=== PATIENT | male | born 1965 | race Caucasian/White ===

== ENCOUNTER 2017-02-10 17:40 | Observation (INO) | payer MEDICAID, OTHER, SELFPAY ==
[~2017-02-10] VITALS: Ht 177.8 cm; Wt 83.0 kg
[2017-02-10] MEDS: INSULIN REGULAR 100 UNITS/ML, 3ML VIAL SQ-INSULIN SCH (01:30)
[~2017-02-10 17:40] MED LIST: AMLO2.5T PO; ARIP20TA8 PO; FLUO20CA19 PO; GABA300C PO; HYDR-3343 PO; INSU100I28 SQ-INSULIN; INSU100V5 SQ-INSULIN; PARO20TA55 PO; QUET100T4 PO; SERT50TA PO; TRAZ50TA18 PO; ZIPR20CA2 PO; ZIPR80CA2 PO
[2017-02-10 18:35] LABS: BLOOD UREA NITROGEN 15 mg/dL (7-18)
[2017-02-10 18:39] LABS: DAU SCREEN DISCLAIMER
[2017-02-10 18:52] LABS: ACETAMINOPHEN < 2 mcg/mL (10-30)
[2017-02-10] MEDS ORDERED: SODIUM CHLORIDE FLUSH 10ML SYR IVF ONE (19:30)
[2017-02-10] MEDS ORDERED: SODIUM CHLORIDE 0.9% 1,000ML IVBOLUS ONE (19:30)
[2017-02-10] MEDS ORDERED: POTASSIUM CHLORIDE 20 MEQ TAB.ER.PRT PO ONE (19:30)
[2017-02-10] MEDS ORDERED: INSULIN REGULAR 100 UNITS/ML, 3ML VIAL IVPush ONE (19:30)
[2017-02-10] MEDS ORDERED: INSULIN SINGLE DOSE, ER SQ-INSULIN ONE (19:33)
[2017-02-10] MEDS ORDERED: POTASSIUM CHLORIDE 20 MEQ TAB.ER.PRT ONE (19:34)
[2017-02-10] MEDS ORDERED: ACETAMINOPHEN 500 MG TABLET ONE (20:30)
[2017-02-10] MEDS ORDERED: ACETAMINOPHEN 500 MG TABLET PO ONE (20:30)
[2017-02-11] MEDS ORDERED: DIPHENHYDRAMINE 50 MG CAPSULE PO PRN (00:30)
[2017-02-11] MEDS ORDERED: DEXTROSE 50%, 50ML SYRINGE IVPush PRN (00:30)
[2017-02-11] MEDS ORDERED: ONDANSETRON ODT 4 MG PO PRN (00:30)
[2017-02-11] MEDS ORDERED: DEXTROSE 4 GM TAB.CHEW PO PRN (00:30)
[2017-02-11] MEDS ORDERED: TEMAZEPAM 15 MG CAPSULE PO PRN (00:30)
[2017-02-11] MEDS ORDERED: QUETIAPINE 25MG TABLET PO PRN (00:30)
[2017-02-11] MEDS ORDERED: ACETAMINOPHEN 325 MG TABLET PO PRN (00:30)
[2017-02-11] MEDS ORDERED: ZIPRASIDONE 20 MG INJ IM PRN (00:30)
[2017-02-11] MEDS ORDERED: GLUCAGON 1 MG IM PRN (00:30)
[2017-02-11 01:19] VITALS: BP 130/82
[2017-02-11] MEDS: INSULIN REGULAR 100 UNITS/ML, 3ML VIAL SQ-INSULIN SCH ×4 (07:00→20:47)
[2017-02-11] MEDS: NICOTINE 14MG/24 HR PATCH.TD24 TD SCH (08:00)
[2017-02-11 08:06] VITALS: BP 101/77
[2017-02-11] MEDS ORDERED: SODIUM CHLORIDE FLUSH 10ML SYR IVF SCH (09:00)
[2017-02-11] MEDS: INSULIN DETEMIR 100 UNITS/ML, PEN SQ-INSULIN SCH (15:00)
[2017-02-11 15:43] LABS: BLOOD UREA NITROGEN 13 mg/dL (7-18)
[2017-02-11] MEDS ORDERED: INSULIN REGULAR 100 UNITS/ML, 3ML VIAL SQ-INSULIN SCH (16:00)
[2017-02-11 19:33] VITALS: BP 134/85
[2017-02-11] MEDS: TRAZODONE 50MG TABLET PO SCH ×2 (20:46→20:55)
[2017-02-11] MEDS: ZIPRASIDONE 20MG CAPSULE PO SCH (20:46)
[2017-02-12] MEDS: INSULIN DETEMIR 100 UNITS/ML, PEN SQ-INSULIN SCH (04:03)
[2017-02-12 07:58] VITALS: BP 121/84
[2017-02-12] MEDS: INSULIN REGULAR 100 UNITS/ML, 3ML VIAL SQ-INSULIN SCH ×4 (08:00→20:10)
[2017-02-12] MEDS: NICOTINE 14MG/24 HR PATCH.TD24 TD SCH (08:51)
[2017-02-12] MEDS: ZIPRASIDONE 20MG CAPSULE PO SCH ×2 (08:51→20:11)
[2017-02-12] MEDS: AMLODIPINE 2.5 MG TABLET PO SCH (08:52)
[2017-02-12] MEDS: QUETIAPINE 100MG TABLET PO SCH (08:52)
[2017-02-12] MEDS: FLUOXETINE 20 MG CAPSULE PO SCH (08:53)
[2017-02-12] MEDS: AMOXICILLIN 500 MG CAPSULE PO SCH ×2 (12:51→20:30)
[2017-02-12] MEDS ORDERED: INSULIN DETEMIR 100 UNITS/ML, PEN SQ-INSULIN SCH (18:00)
[2017-02-12 20:00] VITALS: BP_SYST 108; BP_SYST 111; BP_DIAS 65; BP_DIAS 70
[2017-02-12] MEDS: TRAZODONE 50MG TABLET PO SCH (20:12)
[2017-02-13 07:48] VITALS: BP 112/77
[2017-02-13] MEDS: ZIPRASIDONE 20MG CAPSULE PO SCH ×2 (08:18→20:16)
[2017-02-13] MEDS: NICOTINE 14MG/24 HR PATCH.TD24 TD SCH (08:18)
[2017-02-13] MEDS: AMLODIPINE 2.5 MG TABLET PO SCH (08:18)
[2017-02-13] MEDS: FLUOXETINE 20 MG CAPSULE PO SCH (08:18)
[2017-02-13] MEDS: AMOXICILLIN 500 MG CAPSULE PO SCH ×2 (08:19→20:16)
[2017-02-13] MEDS: INSULIN REGULAR 100 UNITS/ML, 3ML VIAL SQ-INSULIN SCH ×4 (08:20→21:23)
[2017-02-13] MEDS: INSULIN DETEMIR 100 UNITS/ML, PEN SQ-INSULIN SCH ×2 (08:20→18:22)
[2017-02-13] MEDS: QUETIAPINE 100MG TABLET PO SCH (08:27)
[2017-02-13 19:24] VITALS: BP 117/71
[2017-02-13] MEDS: TRAZODONE 50MG TABLET PO SCH (20:16)
[2017-02-14] MEDS: INSULIN DETEMIR 100 UNITS/ML, PEN SQ-INSULIN SCH ×2 (07:54→20:30)
[2017-02-14] MEDS: INSULIN REGULAR 100 UNITS/ML, 3ML VIAL SQ-INSULIN SCH ×4 (07:54→20:31)
[2017-02-14 08:06] VITALS: BP 102/62
[2017-02-14] MEDS: FLUOXETINE 20 MG CAPSULE PO SCH (08:22)
[2017-02-14] MEDS: NICOTINE 14MG/24 HR PATCH.TD24 TD SCH (08:22)
[2017-02-14] MEDS: ZIPRASIDONE 20MG CAPSULE PO SCH ×2 (08:22→20:30)
[2017-02-14] MEDS: QUETIAPINE 100MG TABLET PO SCH (08:23)
[2017-02-14] MEDS: AMOXICILLIN 500 MG CAPSULE PO SCH ×2 (08:23→20:30)
[2017-02-14] MEDS: AMLODIPINE 2.5 MG TABLET PO SCH (08:28)
[2017-02-14 19:45] VITALS: BP 136/77
[2017-02-14] MEDS: DOCUSATE 100 MG CAPSULE PO PRN (20:30)
[2017-02-14] MEDS: TRAZODONE 50MG TABLET PO SCH (20:32)
[2017-02-15 08:00] VITALS: BP 115/69
[2017-02-15] MEDS: INSULIN REGULAR 100 UNITS/ML, 3ML VIAL SQ-INSULIN SCH ×4 (09:36→20:13)
[2017-02-15] MEDS: INSULIN DETEMIR 100 UNITS/ML, PEN SQ-INSULIN SCH (09:37)
[2017-02-15] MEDS: ZIPRASIDONE 20MG CAPSULE PO SCH ×2 (09:38→20:33)
[2017-02-15] MEDS: NICOTINE 14MG/24 HR PATCH.TD24 TD SCH (09:38)
[2017-02-15] MEDS: FLUOXETINE 20 MG CAPSULE PO SCH (09:38)
[2017-02-15] MEDS: AMLODIPINE 2.5 MG TABLET PO SCH (09:38)
[2017-02-15] MEDS: AMOXICILLIN 500 MG CAPSULE PO SCH ×2 (09:39→20:33)
[2017-02-15] MEDS: QUETIAPINE 100MG TABLET PO SCH (09:39)
[2017-02-15] MEDS: DOCUSATE 100 MG CAPSULE PO PRN ×2 (11:29→21:14)
[2017-02-15] MEDS ORDERED: INSULIN DETEMIR 100 UNITS/ML, PEN SQ-INSULIN SCH (19:00)
[2017-02-15 19:41] VITALS: BP 144/74
[2017-02-15] MEDS: TRAZODONE 50MG TABLET PO SCH (20:33)
[2017-02-16 07:30] VITALS: BP 124/77
[2017-02-16] MEDS: INSULIN REGULAR 100 UNITS/ML, 3ML VIAL SQ-INSULIN SCH ×3 (08:55→17:16)
[2017-02-16] MEDS: NICOTINE 14MG/24 HR PATCH.TD24 TD SCH (08:55)
[2017-02-16] MEDS: ZIPRASIDONE 20MG CAPSULE PO SCH (08:56)
[2017-02-16] MEDS: FLUOXETINE 20 MG CAPSULE PO SCH (08:58)
[2017-02-16] MEDS: QUETIAPINE 100MG TABLET PO SCH (08:59)
[2017-02-16] MEDS: AMLODIPINE 2.5 MG TABLET PO SCH (08:59)
[2017-02-16] MEDS: AMOXICILLIN 500 MG CAPSULE PO SCH (08:59)
[2017-02-16] MEDS: DOCUSATE 100 MG CAPSULE PO PRN (09:02)
[2017-02-16] MEDS ORDERED: INSULIN DETEMIR 100 UNITS/ML, PEN SQ-INSULIN SCH (19:00)
== END 2017-02-16 19:45 ==
LOC: ED 23:59 → INTOOBSV 02-11 00:26 → EDBD 02-11 00:26 → EDIP 02-11 00:26 → 3E 02-11 01:13
DX: R45.851 Suicidal ideations (principal); E11.65 Type 2 diabetes mellitus with hyperglycemia; E87.1 Hypo-osmolality and hyponatremia; E87.8 Other disorders of electrolyte and fluid balance, not elsewhere classified; F12.90 Cannabis use, unspecified, uncomplicated; F15.20 Other stimulant dependence, uncomplicated; F20.9 Schizophrenia, unspecified; F17.210 Nicotine dependence, cigarettes, uncomplicated; F31.9 Bipolar disorder, unspecified; N17.9 Acute kidney failure, unspecified; N39.0 Urinary tract infection, site not specified; I10 Essential (primary) hypertension; Z79.4 Long term (current) use of insulin; Z59.0 Homelessness; Z91.14 Patient's other noncompliance with medication regimen
CPT/HCPCS: 36415; 80048; 80307; 80329; 81001; 82040; 82962; 85025; 87077; 87086; 87147; 96372; 96374; 99285; G0378; J1815; J7030; G0480

== ENCOUNTER 2017-02-26 17:08 | Emergency (ER) | payer MEDICAID ==
[~2017-02-26] VITALS: Ht 177.8 cm; Wt 85.0 kg
[2017-02-26 17:10] VITALS: BP 137/88
[2017-02-26] MEDS ORDERED: ACETAMINOPHEN 325 MG TABLET ONE (17:41)
[2017-02-26] MEDS ORDERED: ACETAMINOPHEN 325 MG TABLET PO ONE (18:00)
[2017-02-26] MEDS ORDERED: GABA100C8 PO (18:02)
[2017-02-26] MEDS ORDERED: HALOPERIDOL 5 MG/ML ONE (19:29)
[2017-02-26] MEDS ORDERED: LORazepam 2 MG/ML, 1ML ONE (19:29)
[2017-02-26] MEDS ORDERED: DIPHENHYDRAMINE 50 MG/ML, 1ML ONE (19:29)
[2017-02-27] MEDS ORDERED: LOSA25TA5 PO (23:58)
== END 2017-02-26 18:18 | disposition home or self-care (01) ==
LOC: ED 18:12
DX: M25.562 Pain in left knee (principal); G89.29 Other chronic pain; E11.9 Type 2 diabetes mellitus without complications
CPT/HCPCS: 29505; 70450

== ENCOUNTER 2017-02-27 23:12 | Emergency (ER) | payer MEDICAID ==
[~2017-02-27] VITALS: Ht 177.8 cm; Wt 85.3 kg
[~2017-02-27 23:12] MED LIST changes: +GABA100C8 PO
[2017-02-27 23:58] LABS: DAU SCREEN DISCLAIMER
[2017-02-27] MEDS ORDERED: LOSA25TA5 PO (23:58)
[2017-02-28 00:15] LABS: ASPARTATE AMINO TRANSFERASE 44 U/L (15-37); BLOOD UREA NITROGEN 12 mg/dL (7-18)
[2017-02-28 00:29] LABS: ACETAMINOPHEN < 2 mcg/mL (10-30)
[2017-02-28] MEDS ORDERED: LORazepam 1MG TABLET PO ONE (00:30)
[2017-02-28 01:20] VITALS: BP 133/64
== END 2017-02-28 01:23 | disposition home or self-care (01) ==
LOC: ED 23:49
DX: F32.0 Major depressive disorder, single episode, mild (principal); F15.10 Other stimulant abuse, uncomplicated; E11.9 Type 2 diabetes mellitus without complications; F12.10 Cannabis abuse, uncomplicated; F11.10 Opioid abuse, uncomplicated
CPT/HCPCS: 36415; 80053; 80307; 80329; 81001; 85025; 99284; G0480

== ENCOUNTER 2017-03-10 01:12 | Emergency (ER) | payer MEDICAID ==
[~2017-03-10] VITALS: Ht 177.8 cm; Wt 84.7 kg
[~2017-03-10 01:12] MED LIST changes: +GABA-826 PO; -GABA100C8 PO; +LOSA25TA5 PO
[2017-03-10 01:14] VITALS: BP 150/98
[2017-03-10] MEDS ORDERED: LORazepam 1MG TABLET PO ONE (01:30)
[2017-03-10 02:08] LABS: BLOOD UREA NITROGEN 11 mg/dL (7-18)
[2017-03-10 02:15] LABS: ACETAMINOPHEN < 2 mcg/mL (10-30)
[2017-03-10 04:44] LABS: DAU SCREEN DISCLAIMER
== END 2017-03-10 04:53 | disposition home or self-care (01) ==
LOC: ED 01:41
DX: F20.0 Paranoid schizophrenia (principal); F41.1 Generalized anxiety disorder; E87.6 Hypokalemia; E11.9 Type 2 diabetes mellitus without complications; F17.210 Nicotine dependence, cigarettes, uncomplicated
CPT/HCPCS: 36415; 80048; 80307; 80329; 82040; 85025; 99284; G0480

== ENCOUNTER 2017-03-19 16:16 | Emergency (ER) | payer MEDICAID ==
[~2017-03-19] VITALS: Ht 177.8 cm; Wt 93.0 kg
[2017-03-19 16:20] VITALS: BP 131/87
== END 2017-03-19 17:24 | disposition home or self-care (01) ==
LOC: ED 17:18
DX: S93.602A Unspecified sprain of left foot, initial encounter (principal); X50.9XXA Other and unspecified overexertion or strenuous movements or postures, initial encounter; Y93.89 Activity, other specified; Y99.8 Other external cause status; Y92.89 Other specified places as the place of occurrence of the external cause

== ENCOUNTER 2017-04-28 14:32 | Emergency (ER) | payer MEDICAID ==
[~2017-04-28] VITALS: Ht 177.8 cm; Wt 85.0 kg
[2017-04-28] MEDS ORDERED: SODIUM CHLORIDE FLUSH 10ML SYR IVF ONE (15:00)
[2017-04-28] MEDS ORDERED: SODIUM CHLORIDE 0.9%, 500ML IVBOLUS ONE (15:00)
[2017-04-28 15:27] LABS: BLOOD UREA NITROGEN 8 mg/dL (7-18)
[2017-04-28 15:28] LABS: HEMATOCRIT 44.4 % (39.2-51.8); HEMOGLOBIN 14.6 g/dL (13.7-18.0); WHITE BLOOD COUNT 6.1 x10^3/uL (3.4-10)
[2017-04-28] MEDS ORDERED: INSULIN REGULAR 100 UNITS/ML, 3ML VIAL SQ-INSULIN ONE (16:30)
[2017-04-28] MEDS ORDERED: INSULIN REGULAR 100 UNITS/ML, 3ML VIAL ONE (16:40)
[2017-04-28 16:47] VITALS: BP 134/94
== END 2017-04-28 19:07 | disposition home or self-care (01) ==
LOC: ED 18:50
DX: E11.65 Type 2 diabetes mellitus with hyperglycemia (principal)
CPT/HCPCS: 36415; 80048; 82010; 82040; 82962; 83735; 85025; 96360; 96372; 99284; J7040; J1815

== ENCOUNTER 2017-04-30 19:06 | Emergency (ER) | payer MEDICAID ==
[~2017-04-30] VITALS: Ht 177.8 cm; Wt 76.0 kg
[2017-04-30] MEDS ORDERED: SODIUM CHLORIDE 0.9% 1,000ML IVBOLUS ONE (19:30)
[2017-04-30] MEDS ORDERED: SODIUM CHLORIDE FLUSH 10ML SYR IVF ONE (19:30)
[2017-04-30 19:48] LABS: PH, VENOUS 7.351 pH (7.320-7.420)
[2017-04-30 19:59] LABS: ASPARTATE AMINO TRANSFERASE 14 U/L (15-37); BLOOD UREA NITROGEN 10 mg/dL (7-18)
[2017-04-30] MEDS ORDERED: INSULIN REGULAR 100 UNITS/ML, 3ML VIAL ONE (20:21)
[2017-04-30] MEDS ORDERED: INSULIN REGULAR 100 UNITS/ML, 3ML VIAL IVPush ONE (20:30)
[2017-04-30 21:15] VITALS: BP 109/70
== END 2017-04-30 21:17 | disposition home or self-care (01) ==
LOC: ED 20:00
DX: E11.65 Type 2 diabetes mellitus with hyperglycemia (principal); F15.10 Other stimulant abuse, uncomplicated; F10.220 Alcohol dependence with intoxication, uncomplicated; Z91.14 Patient's other noncompliance with medication regimen; Z79.4 Long term (current) use of insulin
CPT/HCPCS: 36415; 80053; 80307; 82010; 82803; 82962; 85025; 96361; 96374; 99284; J7030

== ENCOUNTER 2017-05-21 01:07 | Emergency (ER) | payer MEDICAID ==
[~2017-05-21] VITALS: Ht 177.8 cm; Wt 76.9 kg
[~2017-05-21 01:07] MED LIST changes: +ARIP20TA5 PO; -ARIP20TA8 PO; -PARO20TA55 PO; +PARO20TA98 PO
[2017-05-21 01:08] VITALS: BP 129/90
== END 2017-05-21 01:46 | disposition home or self-care (01) ==
LOC: ED 01:20
DX: E11.65 Type 2 diabetes mellitus with hyperglycemia (principal); Z76.0 Encounter for issue of repeat prescription; F17.200 Nicotine dependence, unspecified, uncomplicated; Z79.4 Long term (current) use of insulin
CPT/HCPCS: 82962; 99281

== ENCOUNTER 2017-05-21 08:59 | Emergency (ER) | payer MEDICAID ==
[~2017-05-21] VITALS: Ht 177.8 cm; Wt 79.5 kg
[2017-05-21 09:09] VITALS: BP 138/83
[2017-05-21 10:07] LABS: BLOOD UREA NITROGEN 23 mg/dL (7-18)
[2017-05-21 10:09] LABS: ACETAMINOPHEN < 2 mcg/mL (10-30)
[2017-05-21 10:48] LABS: HEMATOCRIT 45.7 % (39.2-51.8); HEMOGLOBIN 15.2 g/dL (13.7-18.0); WHITE BLOOD COUNT 7.5 x10^3/uL (3.4-10)
[2017-05-21 11:29] LABS: DAU SCREEN DISCLAIMER
== END 2017-05-21 14:32 | disposition home or self-care (01) ==
LOC: ED 09:26
DX: F33.9 Major depressive disorder, recurrent, unspecified (principal); S61.512A Laceration without foreign body of left wrist, initial encounter; F15.10 Other stimulant abuse, uncomplicated; F41.9 Anxiety disorder, unspecified; X78.9XXA Intentional self-harm by unspecified sharp object, initial encounter; Y93.89 Activity, other specified; Y99.8 Other external cause status; Y92.89 Other specified places as the place of occurrence of the external cause
CPT/HCPCS: 36415; 80048; 80307; 80329; 82040; 85025; 99284; G0480

== ENCOUNTER 2017-07-01 04:14 | Emergency (ER) | payer MEDICAID ==
[~2017-07-01] VITALS: Ht 177.8 cm; Wt 77.1 kg
[2017-07-01] MEDS ORDERED: ONDANSETRON 2MG/ML, 2ML IVPush ONE (04:30)
[2017-07-01] MEDS ORDERED: SODIUM CHLORIDE 0.9% 1,000ML IVBOLUS ONE (04:30)
[2017-07-01] MEDS ORDERED: ONDANSETRON 2MG/ML, 2ML ONE (04:54)
[2017-07-01 05:00] LABS: HEMOGLOBIN 16.7 g/dL (13.7-18.0); PH, VENOUS 7.356 pH (7.320-7.420); WHITE BLOOD COUNT 7.2 x10^3/uL (3.4-10)
[2017-07-01 05:10] LABS: BLOOD UREA NITROGEN 13 mg/dL (7-18)
[2017-07-01] MEDS ORDERED: INSULIN REGULAR 100 UNITS/ML, 3ML VIAL ONE (05:31)
[2017-07-01] MEDS ORDERED: INSULIN REGULAR 100 UNITS/ML, 3ML VIAL SQ-INSULIN SCH ×2 (07:00)
[2017-07-01 07:22] VITALS: BP 119/69
== END 2017-07-01 07:34 | disposition home or self-care (01) ==
LOC: ED 05:33
DX: E11.65 Type 2 diabetes mellitus with hyperglycemia (principal)
CPT/HCPCS: 36415; 80048; 81003; 82010; 82040; 82803; 82962; 85025; 93005; 96361; 96372; 96374; 99285; J2405; J7030

== ENCOUNTER 2017-08-02 04:55 | Inpatient (IN) | payer OTHER, MEDICAID ==
[~2017-08-02] VITALS: Ht 177.8 cm; Wt 87.0 kg
[2017-08-02] MEDS ORDERED: ZIPR40CA2 PO (05:04)
[2017-08-02] MEDS ORDERED: AMOX1TAB61 PO (05:04)
[2017-08-02] MEDS ORDERED: SERT25TA PO (05:05)
[2017-08-02] MEDS ORDERED: SODIUM CHLORIDE 0.9% 1,000ML IVBOLUS ONE (06:00)
[2017-08-02 07:01] LABS: BLOOD UREA NITROGEN 10 mg/dL (7-18)
[2017-08-02 07:04] LABS: HEMATOCRIT 49.1 % (39.2-51.8); HEMOGLOBIN 16.2 g/dL (13.7-18.0); WHITE BLOOD COUNT 4.9 x10^3/uL (3.4-10)
[2017-08-02 07:06] LABS: IS PT STATUS REG ER OR PRE ER? YES
[2017-08-02] MEDS ORDERED: NS + 20MEQ KCL 1,000 ML IV SCH (08:16)
[2017-08-02] MEDS ORDERED: POLYETHYLENE GLYCOL 17 GM PACKET PO PRN (08:30)
[2017-08-02] MEDS ORDERED: morphine SULFATE 10 MG/ML, 1ML IVPush PRN (08:30)
[2017-08-02] MEDS ORDERED: hydrALAzine 20 MG/ML, 1ML IVPush PRN (08:30)
[2017-08-02] MEDS ORDERED: ZOLPIDEM 5MG TABLET PO PRN (08:30)
[2017-08-02] MEDS ORDERED: LABETALOL 5MG/ML, 20ML IVPush PRN (08:30)
[2017-08-02] MEDS: NICOTINE 14MG/24 HR PATCH.TD24 TD SCH (08:30)
[2017-08-02] MEDS ORDERED: HYDROcodone/APAP 5/325 TABLET PO PRN (08:30)
[2017-08-02] MEDS ORDERED: DOCUSATE 100 MG CAPSULE PO PRN (08:30)
[2017-08-02] MEDS ORDERED: ONDANSETRON ODT 4 MG PO PRN (08:30)
[2017-08-02] MEDS ORDERED: ONDANSETRON 2MG/ML, 2ML IVPush PRN (08:30)
[2017-08-02] MEDS ORDERED: BISACODYL 10 MG SUPP PR PRN (08:30)
[2017-08-02 08:56] VITALS: BP 135/83
[2017-08-02] MEDS ORDERED: AMOXICILLIN/CLAV 500-125MG TABLET PO SCH (09:00)
[2017-08-02] MEDS: ZIPRASIDONE 40MG CAPSULE PO SCH (09:00)
[2017-08-02] MEDS ORDERED: FAMOTIDINE 20 MG TABLET PO SCH (09:00)
[2017-08-02] MEDS ORDERED: LOSARTAN 25MG TABLET PO SCH (09:00)
[2017-08-02 09:45] LABS: IS PT STATUS REG ER OR PRE ER? NO
[2017-08-02] MEDS: SERTRALINE 50MG TABLET PO SCH (10:13)
[2017-08-02] MEDS: GABAPENTIN 100 MG CAPSULE PO SCH ×2 (10:14→21:40)
[2017-08-02] MEDS: FLUOXETINE 20 MG CAPSULE PO SCH (10:14)
[2017-08-02] MEDS: QUETIAPINE 100MG TABLET PO SCH (10:14)
[2017-08-02] MEDS: INSULIN DETEMIR 100 UNITS/ML, PEN SQ-INSULIN SCH ×2 (10:24→21:39)
[2017-08-02] MEDS: INSULIN ASPART 100 UNITS/ML, PEN SQ-INSULIN SCH ×3 (12:00→21:40)
[2017-08-02 13:45] VITALS: BP 88/56
[2017-08-02] MEDS ORDERED: SODIUM CHLORIDE 0.9%, 500ML IVBOLUS ONE (14:00)
[2017-08-02 14:15] VITALS: BP 92/59
[2017-08-02 14:35] LABS: HEMATOCRIT 40.1 % (39.2-51.8); HEMOGLOBIN 13.1 g/dL (13.7-18.0); WHITE BLOOD COUNT 4.4 x10^3/uL (3.4-10)
[2017-08-02 14:53] LABS: C-REACTIVE PROTEIN, QUANT 0.14 mg/dL (0.02-0.49)
[2017-08-02 14:58] LABS: IS PT STATUS REG ER OR PRE ER? NO
[2017-08-02 18:51] LABS: ABG COLLECTION SITE LEFT RADIAL; COLLATERAL CIRCULATION TESTING NORMAL; FIO2 ROOM AIR %
[2017-08-03 04:01] VITALS: BP 119/61
[2017-08-03 04:39] LABS: HEMATOCRIT 38.6 % (39.2-51.8); HEMOGLOBIN 13.2 g/dL (13.7-18.0)
[2017-08-03 04:52] LABS: BLOOD UREA NITROGEN 14 mg/dL (7-18)
[2017-08-03] MEDS: INSULIN ASPART 100 UNITS/ML, PEN SQ-INSULIN SCH ×3 (08:00→16:52)
[2017-08-03] MEDS: QUETIAPINE 100MG TABLET PO SCH (09:00)
[2017-08-03] MEDS: ZIPRASIDONE 40MG CAPSULE PO SCH (09:00)
[2017-08-03] MEDS: NICOTINE 14MG/24 HR PATCH.TD24 TD SCH (10:01)
[2017-08-03] MEDS: FLUOXETINE 20 MG CAPSULE PO SCH (10:02)
[2017-08-03] MEDS: GABAPENTIN 100 MG CAPSULE PO SCH (10:02)
[2017-08-03] MEDS: SERTRALINE 50MG TABLET PO SCH (10:03)
[2017-08-03] MEDS: INSULIN DETEMIR 100 UNITS/ML, PEN SQ-INSULIN SCH (10:11)
[2017-08-03 14:58] VITALS: BP 106/67
[2017-08-03] MEDS ORDERED: INSULIN DETEMIR 100 UNITS/ML, PEN SQ-INSULIN SCH (20:30)
== END 2017-08-04 05:37 | disposition left against medical advice (07) | DRG 84 ==
LOC: ED 05:03 → EDIP 07:35 → INTOOBSV 07:35 → OBSVTOIN 07:35 → 4WST 08:52 → CSU 15:05 → 4WST 08-03 14:50
PROVIDERS: ADMIT Family Medicine; ATTEND Family Medicine
DX: S06.5X9A Traumatic subdural hemorrhage with loss of consciousness of unspecified duration, initial encounter (principal); F20.9 Schizophrenia, unspecified; E11.9 Type 2 diabetes mellitus without complications; F31.9 Bipolar disorder, unspecified; X58.XXXA Exposure to other specified factors, initial encounter; Z53.21 Procedure and treatment not carried out due to patient leaving prior to being seen by health care provider; F41.9 Anxiety disorder, unspecified; I10 Essential (primary) hypertension; Z83.3 Family history of diabetes mellitus; Z87.01 Personal history of pneumonia (recurrent); Z88.8 Allergy status to other drugs, medicaments and biological substances; Y93.89 Activity, other specified; Y92.89 Other specified places as the place of occurrence of the external cause
CPT/HCPCS: 36415; 36600; 70450; 71010; 72125; 80048; 80061; 81003; 82040; 82140; 82533; 82803; 82962; 83036; 83735; 83880; 84100; 84439; 84443; 84484; 85025; 85610; 85651; 85730; 86140; 87081; 93005; 93306; 93880; 95819; 99285; J1815; J3480; J7030; J7040

== ENCOUNTER 2017-08-16 16:52 | Emergency (ER) | payer MEDICAID, OTHER ==
[~2017-08-16] VITALS: Ht 177.8 cm; Wt 76.2 kg
[~2017-08-16 16:52] MED LIST changes: +AMOX1TAB61 PO; +SERT25TA PO; +ZIPR40CA2 PO
[2017-08-16 17:40] VITALS: BP 171/92
[2017-08-16] MEDS ORDERED: INSULIN REGULAR 100 UNITS/ML, 3ML VIAL SQ-INSULIN ONE (18:00)
== END 2017-08-16 17:43 | disposition home or self-care (01) ==
LOC: ED 17:37
DX: E10.65 Type 1 diabetes mellitus with hyperglycemia (principal); Z79.4 Long term (current) use of insulin
CPT/HCPCS: 82962; 99283

== ENCOUNTER 2017-09-14 07:26 | Inpatient (IN) | payer MEDICAID ==
[~2017-09-14] VITALS: Ht 177.8 cm; Wt 84.7 kg
[2017-09-14 08:35] LABS: BLOOD UREA NITROGEN 15 mg/dL (7-18)
[2017-09-14 08:51] LABS: ACETAMINOPHEN < 2 mcg/mL (10-30); ASPARTATE AMINO TRANSFERASE 30 U/L (15-37)
[2017-09-14 08:52] LABS: HEMATOCRIT 41.3 % (39.2-51.8); HEMOGLOBIN 14.5 g/dL (13.7-18.0); WHITE BLOOD COUNT 6.5 x10^3/uL (3.4-10)
[2017-09-14] MEDS ORDERED: INSULIN REGULAR 100 UNITS/ML, 3ML VIAL ONE (09:21)
[2017-09-14] MEDS ORDERED: SODIUM CHLORIDE 0.9% 1,000ML IVBOLUS ONE (09:30)
[2017-09-14] MEDS ORDERED: INSULIN REGULAR 100 UNITS/ML, 3ML VIAL SQ-INSULIN ONE (09:30)
[2017-09-14] MEDS ORDERED: ONDANSETRON 2MG/ML, 2ML IVPush PRN (10:30)
[2017-09-14] MEDS ORDERED: LABETALOL 5MG/ML, 20ML IVPush PRN (10:30)
[2017-09-14] MEDS ORDERED: POLYETHYLENE GLYCOL 17 GM PACKET PO PRN (10:30)
[2017-09-14] MEDS ORDERED: HYDROcodone/APAP 5/325 TABLET PO PRN (10:30)
[2017-09-14] MEDS ORDERED: ONDANSETRON ODT 4 MG PO PRN (10:30)
[2017-09-14] MEDS ORDERED: SODIUM CHLORIDE 0.9% 1,000 ML IV ONE (10:34)
[2017-09-14] MEDS ORDERED: THIAMINE 100MG TABLET PO ONE (11:00)
[2017-09-14] MEDS ORDERED: SODIUM CHLORIDE FLUSH 10ML SYR IVF PRN (11:00)
[2017-09-14 11:39] LABS: DAU SCREEN DISCLAIMER
[2017-09-14 12:37] VITALS: BP 141/86
[2017-09-14] MEDS: SODIUM CHLORIDE 0.9% 1,000 ML IV SCH ×2 (13:28→21:00)
[2017-09-14] MEDS: FOLIC ACID 1 MG TABLET PO SCH (13:50)
[2017-09-14] MEDS: INSULIN ASPART 100 UNITS/ML, PEN SQ-INSULIN SCH ×3 (13:51→21:21)
[2017-09-14] MEDS: INSULIN DETEMIR 100 UNITS/ML, PEN SQ-INSULIN SCH ×2 (13:51→21:20)
[2017-09-14 14:32] VITALS: BP 141/92
[2017-09-14 17:48] LABS: IS PT STATUS REG ER OR PRE ER? NO
[2017-09-14 20:00] VITALS: BP 145/75
[2017-09-14] MEDS ORDERED: GABAPENTIN 100 MG CAPSULE PO SCH (21:00)
[2017-09-14 22:28] LABS: IS PT STATUS REG ER OR PRE ER? NO
[2017-09-15 02:38] VITALS: BP 133/88
[2017-09-15] MEDS: SODIUM CHLORIDE 0.9% 1,000 ML IV SCH ×3 (04:21→20:46)
[2017-09-15 06:14] LABS: HEMATOCRIT 38.7 % (39.2-51.8); WHITE BLOOD COUNT 5.8 x10^3/uL (3.4-10)
[2017-09-15 06:33] LABS: ASPARTATE AMINO TRANSFERASE 13 U/L (15-37); BLOOD UREA NITROGEN 14 mg/dL (7-18)
[2017-09-15 06:37] LABS: IS PT STATUS REG ER OR PRE ER? NO
[2017-09-15] MEDS: FOLIC ACID 1 MG TABLET PO SCH (08:55)
[2017-09-15] MEDS: INSULIN ASPART 100 UNITS/ML, PEN SQ-INSULIN SCH ×4 (08:55→22:33)
[2017-09-15] MEDS: LOSARTAN 25MG TABLET PO SCH (08:56)
[2017-09-15] MEDS: SENNA/DOCUSATE TABLET PO SCH (08:56)
[2017-09-15] MEDS: SERTRALINE 50MG TABLET PO SCH (08:56)
[2017-09-15] MEDS ORDERED: INSULIN DETEMIR 100 UNITS/ML, PEN SQ-INSULIN SCH ×2 (09:00→21:00)
[2017-09-15] MEDS ORDERED: QUETIAPINE 100MG TABLET PO SCH (09:00)
[2017-09-15] MEDS ORDERED: FLUOXETINE 20 MG CAPSULE PO SCH (09:00)
[2017-09-15] MEDS ORDERED: SERTRALINE 50MG TABLET PO SCH (09:00)
[2017-09-15 09:12] VITALS: BP 144/98
[2017-09-15] MEDS ORDERED: LORazepam 0.5MG TABLET PO PRN (09:30)
[2017-09-15 15:18] VITALS: BP 144/92
[2017-09-15 19:55] VITALS: BP_SYST 144; BP_SYST 161; BP_DIAS 90; BP_DIAS 93
[2017-09-15] MEDS: QUETIAPINE 25MG TABLET PO SCH (22:32)
[2017-09-16 03:51] VITALS: BP 140/83
[2017-09-16] MEDS: SODIUM CHLORIDE 0.9% 1,000 ML IV SCH ×2 (05:06→12:33)
[2017-09-16 06:53] LABS: HEMATOCRIT 41.4 % (39.2-51.8); WHITE BLOOD COUNT 8.4 x10^3/uL (3.4-10)
[2017-09-16] MEDS: INSULIN ASPART 100 UNITS/ML, PEN SQ-INSULIN SCH ×4 (07:00→21:17)
[2017-09-16 07:06] LABS: ASPARTATE AMINO TRANSFERASE 16 U/L (15-37); BLOOD UREA NITROGEN 8 mg/dL (7-18)
[2017-09-16] MEDS: INSULIN DETEMIR 100 UNITS/ML, PEN SQ-INSULIN SCH ×2 (09:00→11:41)
[2017-09-16 09:21] VITALS: BP 149/89
[2017-09-16] MEDS: LOSARTAN 25MG TABLET PO SCH (11:40)
[2017-09-16] MEDS: SERTRALINE 50MG TABLET PO SCH (11:40)
[2017-09-16] MEDS: FOLIC ACID 1 MG TABLET PO SCH (11:40)
[2017-09-16] MEDS: SENNA/DOCUSATE TABLET PO SCH (11:40)
[2017-09-16] MEDS ORDERED: LORazepam 0.5MG TABLET PO PRN (12:30)
[2017-09-16] MEDS: AMPICILLIN/SULBACTAM 3 GM in SODIUM CHLORIDE 0.9% 100 ML IV SCH ×2 (12:33→18:27)
[2017-09-16] MEDS: DOXYCYCLINE 100MG TABLET PO SCH ×2 (12:33→21:18)
[2017-09-16 12:35] VITALS: BP 152/95
[2017-09-16 19:53] VITALS: BP 151/99
[2017-09-16] MEDS ORDERED: INSULIN DETEMIR 100 UNITS/ML, PEN SQ-INSULIN SCH (21:00)
[2017-09-16] MEDS: QUETIAPINE 25MG TABLET PO SCH (21:19)
[2017-09-17] MEDS: AMPICILLIN/SULBACTAM 3 GM in SODIUM CHLORIDE 0.9% 100 ML IV SCH ×4 (00:44→18:30)
[2017-09-17 01:50] VITALS: BP 142/83
[2017-09-17] MEDS: INSULIN ASPART 100 UNITS/ML, PEN SQ-INSULIN SCH ×4 (07:00→20:57)
[2017-09-17] MEDS ORDERED: REGADENOSON 0.4 MG/5 ML SYRINGE ONE (08:01)
[2017-09-17 08:10] VITALS: BP 123/71
[2017-09-17] MEDS ORDERED: INSULIN DETEMIR 100 UNITS/ML, PEN SQ-INSULIN SCH ×2 (09:00→21:00)
[2017-09-17] MEDS: FOLIC ACID 1 MG TABLET PO SCH ×2 (09:00→12:54)
[2017-09-17 12:34] VITALS: BP 143/96
[2017-09-17] MEDS: LOSARTAN 25MG TABLET PO SCH (12:53)
[2017-09-17] MEDS: SENNA/DOCUSATE TABLET PO SCH (12:53)
[2017-09-17] MEDS: SERTRALINE 50MG TABLET PO SCH (12:54)
[2017-09-17] MEDS: DOXYCYCLINE 100MG TABLET PO SCH ×2 (12:54→20:55)
[2017-09-17 20:00] VITALS: BP 144/90
[2017-09-17] MEDS: QUETIAPINE 25MG TABLET PO SCH (20:55)
[2017-09-18] MEDS: AMPICILLIN/SULBACTAM 3 GM in SODIUM CHLORIDE 0.9% 100 ML IV SCH ×3 (00:22→12:22)
[2017-09-18 02:35] VITALS: BP 144/92
[2017-09-18 06:30] VITALS: BP 117/65
[2017-09-18] MEDS: INSULIN ASPART 100 UNITS/ML, PEN SQ-INSULIN SCH ×4 (07:00→21:00)
[2017-09-18] MEDS ORDERED: MAGNESIUM CITRATE 300ML ORAL SOL PO ONE (07:00)
[2017-09-18] MEDS: SERTRALINE 50MG TABLET PO SCH (10:14)
[2017-09-18] MEDS: BISACODYL 5 MG EC TABLET PO SCH (10:14)
[2017-09-18] MEDS: SENNA/DOCUSATE TABLET PO SCH (10:14)
[2017-09-18] MEDS: FOLIC ACID 1 MG TABLET PO SCH (10:14)
[2017-09-18] MEDS: LOSARTAN 25MG TABLET PO SCH (10:14)
[2017-09-18] MEDS: DOXYCYCLINE 100MG TABLET PO SCH ×2 (10:14→21:04)
[2017-09-18] MEDS: INSULIN DETEMIR 100 UNITS/ML, PEN SQ-INSULIN SCH ×2 (10:15→21:04)
[2017-09-18 12:01] VITALS: BP 150/102
[2017-09-18 19:05] VITALS: BP 155/81
[2017-09-18] MEDS: QUETIAPINE 25MG TABLET PO SCH (21:04)
[2017-09-19 02:04] VITALS: BP 144/96
[2017-09-19] MEDS: INSULIN ASPART 100 UNITS/ML, PEN SQ-INSULIN SCH ×4 (07:00→22:26)
[2017-09-19 07:28] VITALS: BP 141/94
[2017-09-19] MEDS: SERTRALINE 50MG TABLET PO SCH (09:00)
[2017-09-19] MEDS: SENNA/DOCUSATE TABLET PO SCH (09:00)
[2017-09-19] MEDS: FOLIC ACID 1 MG TABLET PO SCH (09:00)
[2017-09-19] MEDS: DOXYCYCLINE 100MG TABLET PO SCH ×2 (09:00→22:24)
[2017-09-19] MEDS: BISACODYL 5 MG EC TABLET PO SCH (09:00)
[2017-09-19] MEDS: LOSARTAN 25MG TABLET PO SCH (09:00)
[2017-09-19] MEDS: INSULIN DETEMIR 100 UNITS/ML, PEN SQ-INSULIN SCH ×2 (09:02→22:25)
[2017-09-19 13:15] VITALS: BP 157/94
[2017-09-19 19:09] VITALS: BP 131/88
[2017-09-19] MEDS: QUETIAPINE 25MG TABLET PO SCH (22:24)
[2017-09-20 02:58] VITALS: BP 136/84
[2017-09-20] MEDS ORDERED: FOLI-17 PO (06:37)
[2017-09-20] MEDS ORDERED: INSU100I28 SQ-INSULIN ×2 (06:37)
[2017-09-20] MEDS ORDERED: LOSA25TA2 PO (06:37)
[2017-09-20] MEDS ORDERED: QUET25TA PO (06:37)
[2017-09-20] MEDS ORDERED: SERT50TA5 PO (06:37)
[2017-09-20] MEDS: INSULIN ASPART 100 UNITS/ML, PEN SQ-INSULIN SCH (07:00)
[2017-09-20 08:00] VITALS: BP 140/90
[2017-09-20] MEDS: LOSARTAN 25MG TABLET PO SCH (08:36)
[2017-09-20] MEDS: INSULIN DETEMIR 100 UNITS/ML, PEN SQ-INSULIN SCH (08:36)
[2017-09-20] MEDS: FOLIC ACID 1 MG TABLET PO SCH (08:37)
[2017-09-20] MEDS: SENNA/DOCUSATE TABLET PO SCH (08:37)
[2017-09-20] MEDS: SERTRALINE 50MG TABLET PO SCH (08:37)
[2017-09-20] MEDS: BISACODYL 5 MG EC TABLET PO SCH (08:37)
[2017-09-20] MEDS: DOXYCYCLINE 100MG TABLET PO SCH (08:37)
== END 2017-09-20 12:05 | disposition home or self-care (01) | DRG 637 ==
LOC: ED 10:25 → EDIP 10:26 → ED 10:59 → 4WST 12:06
PROVIDERS: ADMIT Hospitalist; ATTEND Hospitalist
DX: E11.65 Type 2 diabetes mellitus with hyperglycemia (principal); J96.01 Acute respiratory failure with hypoxia; R45.851 Suicidal ideations; F20.9 Schizophrenia, unspecified; F12.90 Cannabis use, unspecified, uncomplicated; F15.10 Other stimulant abuse, uncomplicated; F17.210 Nicotine dependence, cigarettes, uncomplicated; F31.9 Bipolar disorder, unspecified; F41.9 Anxiety disorder, unspecified; I10 Essential (primary) hypertension; Z79.4 Long term (current) use of insulin; Z79.899 Other long term (current) drug therapy; Z91.19 Patient's noncompliance with other medical treatment and regimen; Z91.5 Personal history of self-harm; Z59.0 Homelessness
CPT/HCPCS: 36415; 70450; 71010; 78452; 80053; 80307; 80329; 81003; 82010; 82800; 82962; 83036; 83735; 84145; 84439; 84443; 84484; 85025; 87040; 87070; 87205; 93005; 93017; 96360; 96372; J0295; J1815; J2785; A9502; C9898; G0479; G0480; J7030

== ENCOUNTER 2017-09-21 22:43 | Emergency (ER) | payer MEDICAID ==
[~2017-09-21] VITALS: Ht 175.3 cm; Wt 77.6 kg
[~2017-09-21 22:43] MED LIST changes: +FOLI-17 PO; +LOSA25TA2 PO; +QUET25TA PO; +SERT50TA5 PO
[2017-09-21 22:51] VITALS: BP 174/90
[2017-09-22 00:05] LABS: BASOPHILS # (AUTO) 0.01 x10^3/uL (0-0.1); BASOPHILS % (AUTO) 0 % (0-1); EOSINOPHILS # (AUTO) 0.07 x10^3/uL (0-0.4); EOSINOPHILS % (AUTO) 1 % (1-7); LYMPHOCYTES # (AUTO) 1.72 x10^3/uL (1-3.4); LYMPHOCYTES % (AUTO) 25 % (22-44); MD NO; MEAN CORPUSCULAR HEMOGLOBIN 30.1 pg (27.5-34.5); MEAN CORPUSCULAR HGB CONC 33.5 g/dL (33.2-36.2); MEAN CORPUSCULAR VOLUME 89.7 fL (81-97); MEAN PLATELET VOLUME 7.8 fL (7.4-10.4); MONOCYTES # (AUTO) 0.39 x10^3/uL (0.2-0.8); MONOCYTES % (AUTO) 6 % (2-9); NEUTROPHILS # (AUTO) 4.79 x10^3/uL (1.8-6.8); NEUTROPHILS % (AUTO) 69 % (42-75); PLATELET COUNT 412 x10^3/uL (130-400); RED BLOOD COUNT 4.81 x10^6/uL (4.38-5.82); RED CELL DISTRIBUTION WIDTH 13.1 % (9.4-14.8)
[2017-09-22 00:14] LABS: ALBUMIN 3.6 g/dL (3.4-5.0); ANION GAP 5 mmol/L (5-15); CALCIUM 9.2 mg/dL (8.5-10.1); CHLORIDE 103 mmol/L (98-107); CREATININE 0.89 mg/dL (0.7-1.3)
== END 2017-09-22 00:46 | disposition home or self-care (01) ==
LOC: ED 09-22 00:40
DX: E11.65 Type 2 diabetes mellitus with hyperglycemia (principal); F10.129 Alcohol abuse with intoxication, unspecified; F20.9 Schizophrenia, unspecified; F31.9 Bipolar disorder, unspecified; I10 Essential (primary) hypertension
CPT/HCPCS: 36415; 80048; 82040; 82962; 85025; 99284

== ENCOUNTER 2017-11-02 16:48 | Emergency (ER) | payer MEDICAID ==
[~2017-11-02] VITALS: Ht 177.8 cm; Wt 78.8 kg
[2017-11-02 16:51] VITALS: BP 154/92
[2017-11-02] MEDS ORDERED: SODIUM CHLORIDE FLUSH 10ML SYR IVF ONE (17:30)
[2017-11-02] MEDS ORDERED: SODIUM CHLORIDE 0.9% 1,000ML IVBOLUS ONE ×2 (17:30→18:30)
[2017-11-02 17:47] LABS: MICROSCOPIC INDICATED
[2017-11-02 17:50] LABS: BASOPHILS # (AUTO) 0.02 x10^3/uL (0-0.1); BASOPHILS % (AUTO) 0 % (0-1); EOSINOPHILS % (AUTO) 2 % (1-7); LYMPHOCYTES # (AUTO) 1.65 x10^3/uL (1-3.4); LYMPHOCYTES % (AUTO) 26 % (22-44); MD NO; MEAN CORPUSCULAR HGB CONC 33.2 g/dL (33.2-36.2); MEAN CORPUSCULAR VOLUME 90.2 fL (81-97); MEAN PLATELET VOLUME 8.6 fL (7.4-10.4); MONOCYTES # (AUTO) 0.49 x10^3/uL (0.2-0.8); MONOCYTES % (AUTO) 8 % (2-9); NEUTROPHILS # (AUTO) 4.09 x10^3/uL (1.8-6.8); NEUTROPHILS % (AUTO) 65 % (42-75); PLATELET COUNT 298 x10^3/uL (130-400); RED BLOOD COUNT 5.21 x10^6/uL (4.38-5.82); RED CELL DISTRIBUTION WIDTH 13.4 % (9.4-14.8)
[2017-11-02 18:01] LABS: ALANINE AMINOTRANSFERASE 45 U/L (12-78); ALBUMIN 4.3 g/dL (3.4-5.0); ANION GAP 8 mmol/L (5-15); CALCIUM 8.8 mg/dL (8.5-10.1); CHLORIDE 100 mmol/L (98-107); CREATININE 1.14 mg/dL (0.7-1.3)
[2017-11-02 18:02] LABS: CULTURE INDICATED? NO
[2017-11-02 18:03] LABS: ALKALINE PHOSPHATASE 103 U/L (45-117); BILIRUBIN,TOTAL 0.9 mg/dL (0.2-1.0); TOTAL PROTEIN 8.6 g/dL (6.4-8.2)
[2017-11-02] MEDS ORDERED: INSULIN REGULAR 100 UNITS/ML, 3ML VIAL ONE (18:21)
[2017-11-02 18:27] LABS: ACETONE, SERUM Negative (Negative)
[2017-11-02] MEDS ORDERED: INSULIN REGULAR 100 UNITS/ML, 3ML VIAL SQ-INSULIN ONE (18:30)
[2017-11-02] MEDS ORDERED: DILTIAZEM 5 MG/ML, 5ML IV ONE (18:30)
== END 2017-11-02 18:41 | disposition home or self-care (01) ==
LOC: ED 18:02
DX: E11.65 Type 2 diabetes mellitus with hyperglycemia (principal); I10 Essential (primary) hypertension; Z79.4 Long term (current) use of insulin; Z91.14 Patient's other noncompliance with medication regimen
CPT/HCPCS: 36415; 80053; 81001; 82010; 85025; 96372

== ENCOUNTER 2019-01-19 12:42 | Emergency (ER) | payer MEDICAID ==
[~2019-01-19] VITALS: Ht 177.8 cm; Wt 93.2 kg
[~2019-01-19 12:42] MED LIST changes: -AMLO2.5T PO; +AMLO2.5T5 PO; +LOSA25TA25 PO; -LOSA25TA5 PO; -QUET25TA PO; +QUET25TA7 PO; +SERT50TA28 PO; -SERT50TA5 PO; -TRAZ50TA18 PO; +TRAZ50TA66 PO
--- NOTE | 2019-01-19 13:20 | NUR ---
DATA ENTRY REPRESENTATIVE: PT TO ROOM FROM THERESA GALINDO.
[2019-01-19] MEDS ORDERED: SODIUM CHLORIDE 0.9% 1,000ML IVBOLUS ONE (13:30)
[2019-01-19] MEDS ORDERED: INSULIN REGULAR 100 UNITS/ML, 3ML VIAL SQ-INSULIN ONE (13:30)
--- NOTE | 2019-01-19 13:58 | NUR ---
FINGERSTICK GLUCOSE 342, PT INSTRUCTED TO PROVIDE CLEAN CATCH UA, PT UP TO BATHROOM TO VOID, GAIT STEADY.
[2019-01-19 14:23] LABS: PH, VENOUS 7.369 pH (7.320-7.420)
--- NOTE | 2019-01-19 14:23 | NUR ---
PT PRESENTS TO ED WITH C/O INCREASED URINATION AND N/V SINCE HE HAS BEEN OUT OF INSULIN X 4 DAYS. URINE SAMPLE OBTAINED AND SENT TO LAB. PIV ATTEMPTED X 2 BY THIS RN, WITHOUT SUCCESS. PIV PLACED BY [facility]. AWAITING LABS AND DISPO. BP AND SPO2 MONITORS IN PLACE.
[2019-01-19 14:33] LABS: BASOPHILS # (AUTO) 0.02 x10^3/uL (0-0.1); BASOPHILS % (AUTO) 0 % (0-1); EOSINOPHILS # (AUTO) 0.14 x10^3/uL (0-0.4); EOSINOPHILS % (AUTO) 2 % (1-7); LYMPHOCYTES # (AUTO) 1.87 x10^3/uL (1-3.4); LYMPHOCYTES % (AUTO) 25 % (22-44); MD NO; MEAN CORPUSCULAR HGB CONC 32.7 g/dL (33.2-36.2); MEAN CORPUSCULAR VOLUME 88.7 fL (81-97); MEAN PLATELET VOLUME 9.1 fL (7.4-10.4); MONOCYTES # (AUTO) 0.61 x10^3/uL (0.2-0.8); MONOCYTES % (AUTO) 8 % (2-9); NEUTROPHILS # (AUTO) 4.83 x10^3/uL (1.8-6.8); NEUTROPHILS % (AUTO) 65 % (42-75); PLATELET COUNT 250 x10^3/uL (130-400); RED BLOOD COUNT 5.45 x10^6/uL (4.38-5.82); RED CELL DISTRIBUTION WIDTH 12.5 % (9.4-14.8)
[2019-01-19 14:37] LABS: ALANINE AMINOTRANSFERASE 41 U/L (12-78); ALBUMIN 4.5 g/dL (3.4-5.0); ANION GAP 9 mmol/L (5-15); CALCIUM 9.4 mg/dL (8.5-10.1); CHLORIDE 102 mmol/L (98-107)
[2019-01-19 14:39] LABS: ALKALINE PHOSPHATASE 102 U/L (45-117); BILIRUBIN,TOTAL 1.3 mg/dL (0.2-1.0); TOTAL PROTEIN 8.6 g/dL (6.4-8.2)
[2019-01-19 14:42] LABS: MICROSCOPIC NOT IND
[2019-01-19 14:48] LABS: CULTURE INDICATED? NO
--- NOTE | 2019-01-19 14:51 | NUR ---
BG DISCUSSED WITH LITTLE WICK RN TO HOLD INSULIN AT THIS TIME AND REPEAT CHECK AFTER 1L NS BOLUSED. NS INFUSING RAPIDLY AT THIS TIME.
[2019-01-19 15:30] LABS: ACETONE, SERUM Moderate(40mg/dL) mg/dL (Negative)
[2019-01-19] MEDS ORDERED: INSULIN LISPRO 100 UNITS/ML, PEN ONE (15:30)
--- NOTE | 2019-01-19 15:35 | NUR ---
REPEAT FINGERSTICK 279, EDMD LAW NOTIFIED. ORDER RECEIVED FOR 5 UNITS SQ INSULIN, PT MEDICATED PER EMAR, TOLERATED WELL. PT A&O, RESPS EVEN AND UNLABORED. PT DENIES ANY NEEDS AT THIS TIME. AWAITING MD RECHECK AND DISPO.
[2019-01-19] MEDS ORDERED: INSULIN REGULAR 100 UNITS/ML, 3ML VIAL SQ-INSULIN SCH (16:00)
[2019-01-19 16:52] VITALS: BP 150/91
--- NOTE | 2019-01-19 16:55 | NUR ---
repeat bg 264, pt given dc education and rx. pt educated regarding insulin rx. piv dc'd with tip intact. pt a&o ,resps even and unlabored. pt tolerating po fluids with no n/v. pt amb to dc desk with steady gait. nadn.
== END 2019-01-19 16:58 | disposition home or self-care (01) ==
LOC: ED 14:32
DX: E11.65 Type 2 diabetes mellitus with hyperglycemia (principal); I10 Essential (primary) hypertension
CPT/HCPCS: 80053; 81003; 82010; 82803; 82962; 83735; 85025; 96360; 96372; 99283; J7030

== ENCOUNTER 2019-02-18 07:08 | Emergency (ER) | payer MEDICAID ==
[~2019-02-18] VITALS: Ht 177.8 cm; Wt 86.0 kg
--- NOTE | 2019-02-18 07:30 | NUR ---
late entry: pt in secured room. rolling doors secured for pt saftey. belongings collected in two bags and locked in cabinet. Sitter monitoring pt for his saftey.
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
[2019-02-18 08:36] LABS: MEAN CORPUSCULAR HEMOGLOBIN 29.8 pg (27.5-34.5); MEAN CORPUSCULAR HGB CONC 32.3 g/dL (33.2-36.2); MEAN CORPUSCULAR VOLUME 92.2 fL (81-97); MEAN PLATELET VOLUME 7.9 fL (7.4-10.4); PLATELET COUNT 304 x10^3/uL (130-400); RED BLOOD COUNT 4.74 x10^6/uL (4.38-5.82)
[2019-02-18 08:39] LABS: ALBUMIN 3.5 g/dL (3.4-5.0); ANION GAP 5 mmol/L (5-15); CALCIUM 8.3 mg/dL (8.5-10.1); CHLORIDE 108 mmol/L (98-107); CREATININE 0.83 mg/dL (0.7-1.3); SALICYLATE LEVEL < 1.7 mg/dL (2.8-20.0)
[2019-02-18 08:40] LABS: ACETAMINOPHEN < 2 mcg/mL (10-30)
[2019-02-18 08:52] LABS: BASOPHILS # (AUTO) 0.02 x10^3/uL (0-0.1); BASOPHILS % (AUTO) 0 % (0-1); EOSINOPHILS # (AUTO) 0.09 x10^3/uL (0-0.4); EOSINOPHILS % (AUTO) 2 % (1-7); LYMPHOCYTES # (AUTO) 1.76 x10^3/uL (1-3.4); LYMPHOCYTES % (AUTO) 35 % (22-44); MD SCAN; MONOCYTES # (AUTO) 0.41 x10^3/uL (0.2-0.8); MONOCYTES % (AUTO) 8 % (2-9); NEUTROPHILS # (AUTO) 2.74 x10^3/uL (1.8-6.8); NEUTROPHILS % (AUTO) 55 % (42-75)
--- NOTE | 2019-02-18 08:52 | NUR ---
[facility] called for consult
--- NOTE | 2019-02-18 09:12 | NUR ---
pt unable to urinate at this time after several requests.
--- NOTE | 2019-02-18 10:30 | NUR ---
Urine collected and sent to lab. Pt provided with meal tray SI precautions.
--- NOTE | 2019-02-18 10:32 | NUR ---
2nd call to [facility] for consult
[2019-02-18 10:57] LABS: BARBITURATE SCREEN, URINE Negative (Negative); BENZODIAZEPINE SCREEN, URINE Negative (Negative); CANNABINOID SCREEN, URINE Positive (Negative); COCAINE SCREEN, URINE Negative (Negative); METHADONE SCREEN, URINE Negative (Negative); OPIATE SCREEN, URINE Negative (Negative)
[2019-02-18 11:00] LABS: AMPHETAMINE SCREEN, URINE Positive (Negative)
--- NOTE | 2019-02-18 11:05 | NUR ---
pt consumed 100% of meal. pt currently sleeping.
--- NOTE | 2019-02-18 12:00 | NUR ---
pt sleeping on gurney. no acute distress noted. sitter at bedside.
--- NOTE | 2019-02-18 12:11 | NUR ---
1200 i states we need to contact [facility] [phone]. called and requested consult.
--- NOTE | 2019-02-18 12:59 | NUR ---
pt sleeping on gurney. no acute distress noted. sitter at bedside.
--- NOTE | 2019-02-18 13:30 | NUR ---
9327 2nd call to [facility] for consult
--- NOTE | 2019-02-18 15:46 | NUR ---
3RD CALL TO [facility] FOR CONSULT
--- NOTE | 2019-02-18 15:58 | NUR ---
Pt resting in bed with eyes closed, resp even and unlabored, NADN. Room remains secured, sitter within eyesight.
--- NOTE | 2019-02-18 16:02 | NUR ---
[facility] CALLED FOR CONSULT DUE TO BEING UNABLE TO REACH [facility] FOR MOBILE ASSESSMENT.
--- NOTE | 2019-02-18 16:32 | NUR ---
talked on the phone to Dr. Jade with [facility] regarding pt disposition
--- NOTE | 2019-02-18 16:46 | NUR ---
pt conduting tele psych consult with dr wilson currently
--- NOTE | 2019-02-18 18:19 | NUR ---
pt BG 272. Dr. Floyd notified.
--- NOTE | 2019-02-18 18:53 | NUR ---
PACKET FAXED TO [facility], [place] [facility]
--- NOTE | 2019-02-18 18:57 | NUR ---
Report from Mary Pang rn. This rn to assume care of pt. Roller doors in place. Sitter in hallway. Resting comfortably on gurney. Nadn. Ordered hospital bed.
--- NOTE | 2019-02-18 19:31 | NUR ---
Given dinner at this time.
--- NOTE | 2019-02-18 19:52 | NUR ---
SPOKE TO PAUL AT [facility] TO SET UP A MOBILE ASSESMENT FOR THIS PT. PAUL STATED THAT SHE WILL PAGE FOR AN LIFEGUARD IMMEDIATELY.
--- NOTE | 2019-02-18 20:24 | NUR ---
Report given to Eliel del angel at [place]. Awaiting potential admit for pt.
[2019-02-18] MEDS ORDERED: ACETAMINOPHEN 325 MG TABLET PO PRN (20:30)
[2019-02-18] MEDS ORDERED: LOSARTAN 25MG TABLET PO SCH (20:30)
--- NOTE | 2019-02-18 20:45 | NUR ---
SPOKE TO [facility], DR MCCARTNEY ACCEPTING PATIENT.
[2019-02-18 20:52] LABS: HEMOGLOBIN A1C 12.9 % (4.2-6.3)
[2019-02-18] MEDS ORDERED: QUETIAPINE 25MG TABLET PO SCH ×2 (21:00)
[2019-02-18] MEDS ORDERED: INSULIN LISPRO 100 UNITS/ML, PEN SQ-INSULIN SCH (21:00)
[2019-02-18] MEDS ORDERED: BUSPIRONE 10 MG TABLET PO SCH (21:00)
[2019-02-18] MEDS ORDERED: QUETIAPINE 25MG TABLET ONE (21:42)
[2019-02-18 21:50] VITALS: BP 168/76
--- NOTE | 2019-02-18 22:07 | NUR ---
Pt refusing all medication except insulin. "its a little too late now. i dont need that shit."
[2019-02-19] MEDS ORDERED: SERTRALINE 50MG TABLET PO SCH (09:00)
== END 2019-02-18 22:43 ==
LOC: ED 07:56 → UNDOADMIN 18:59 → EDIP 18:59 → ED 22:43
DX: F15.950 Other stimulant use, unspecified with stimulant-induced psychotic disorder with delusions (principal); F20.0 Paranoid schizophrenia; E11.40 Type 2 diabetes mellitus with diabetic neuropathy, unspecified; Z79.4 Long term (current) use of insulin; I10 Essential (primary) hypertension; E11.65 Type 2 diabetes mellitus with hyperglycemia; F32.9 Major depressive disorder, single episode, unspecified
CPT/HCPCS: 36415; 80048; 80307; 82040; 82962; 83036; 85025; 96372; 99285; J1815

== ENCOUNTER 2019-02-25 04:37 | Emergency (ER) | payer MEDICAID ==
[~2019-02-25] VITALS: Ht 177.8 cm; Wt 84.1 kg
[2019-02-25] MEDS ORDERED: QUET25TA5 PO (04:50)
[2019-02-25] MEDS ORDERED: SERT25TA PO (04:50)
--- NOTE | 2019-02-25 04:52 | NUR ---
PT PRESENTED WITH C/O FEELING ANXIOUS. PT SAYS HE IS TAKING HIS MEDS BUT NOT HELPING. MONITORS APPLIED, SIDERAILS UP X2, CALLLIGHT WITHIN REACH. AWAITING ERP FOR EVAL AND ORDERS
[2019-02-25] MEDS ORDERED: LORazepam 1MG TABLET PO ONE (05:00)
[2019-02-25] MEDS ORDERED: LORazepam 1MG TABLET ONE (05:02)
--- NOTE | 2019-02-25 05:06 | NUR ---
P MEDICATED PER MAR. URINE SAMPLE TAKEN TO LAB
[2019-02-25 05:22] LABS: BASOPHILS # (AUTO) 0.04 x10^3/uL (0-0.1); BASOPHILS % (AUTO) 0 % (0-1); EOSINOPHILS # (AUTO) 0.07 x10^3/uL (0-0.4); EOSINOPHILS % (AUTO) 1 % (1-7); LYMPHOCYTES # (AUTO) 2.34 x10^3/uL (1-3.4); LYMPHOCYTES % (AUTO) 27 % (22-44); MD NO; MEAN CORPUSCULAR HEMOGLOBIN 30.1 pg (27.5-34.5); MEAN CORPUSCULAR HGB CONC 32.4 g/dL (33.2-36.2); MEAN CORPUSCULAR VOLUME 92.9 fL (81-97); MONOCYTES # (AUTO) 0.65 x10^3/uL (0.2-0.8); MONOCYTES % (AUTO) 8 % (2-9); NEUTROPHILS # (AUTO) 5.51 x10^3/uL (1.8-6.8); NEUTROPHILS % (AUTO) 64 % (42-75); PLATELET COUNT 350 x10^3/uL (130-400)
[2019-02-25 05:29] LABS: ALBUMIN 4.1 g/dL (3.4-5.0); ANION GAP 9 mmol/L (5-15); CALCIUM 9.5 mg/dL (8.5-10.1); CHLORIDE 104 mmol/L (98-107)
[2019-02-25 05:31] LABS: CREATININE 0.94 mg/dL (0.7-1.3)
[2019-02-25 05:33] LABS: AMPHETAMINE SCREEN, URINE Positive (Negative); BARBITURATE SCREEN, URINE Negative (Negative); BENZODIAZEPINE SCREEN, URINE Negative (Negative); CANNABINOID SCREEN, URINE Positive (Negative); COCAINE SCREEN, URINE Negative (Negative); METHADONE SCREEN, URINE Negative (Negative); OPIATE SCREEN, URINE Positive (Negative)
[2019-02-25 05:33] LABS: ACETAMINOPHEN < 2 mcg/mL (10-30); SALICYLATE LEVEL < 1.7 mg/dL (2.8-20.0)
--- NOTE | 2019-02-25 06:09 | NUR ---
PT RESTING ON GURNEY, PROVIDED PT WITH JUICE AND SNACK, MONITORS I PLACE, CALL LIGHT WITHIN REACH. PT DENIES FURTHER NEEDS AT THIS TIME
--- NOTE | 2019-02-25 06:20 | NUR ---
Patient with Medicaid HPN expansion insurance. [facility] contacted, awaiting assessment at this time.
--- NOTE | 2019-02-25 07:05 | NUR ---
REPORT GIVEN TO [facility]
--- NOTE | 2019-02-25 07:08 | NUR ---
REPORT FROM JESUS LONDONO. DIET TRAY ORDERED. VSS. PATILUIS ANTONION GIVEN ORANGE JUICE.
--- NOTE | 2019-02-25 07:59 | NUR ---
gave breaskfast tray. waiting [facility]
--- NOTE | 2019-02-25 10:02 | NUR ---
2ND CALL PLACED TO [facility] FOR EVAL ETA
--- NOTE | 2019-02-25 10:53 | NUR ---
LISBETI (GEOFFREY) RETURNED CALL PT NOT [facility] PATIENT
--- NOTE | 2019-02-25 11:39 | NUR ---
PATIENT RESTING. MEAL TRAY ORDERED
--- NOTE | 2019-02-25 11:41 | NUR ---
[facility] TO EVAL. CONTACTED [facility] @ 6102 SPOKE WITH TERRENCE Brady
--- NOTE | 2019-02-25 12:27 | NUR ---
MEAL TRAY GIVEN TO PATIENT. PATIETN RESTING. NO DISTRESS.
[2019-02-25 14:22] VITALS: BP 122/65
--- NOTE | 2019-02-25 16:24 | NUR ---
PATIENT WOULD LIKE TO LEAVE. SPOKE WITH MD ANTONY FOR RE-EVAL. PATIENT IS AWAKE, ALERT AND COOEPRATIVE AT THIS TIME
== END 2019-02-25 16:44 | disposition home or self-care (01) ==
LOC: ED 04:58
DX: F15.950 Other stimulant use, unspecified with stimulant-induced psychotic disorder with delusions (principal)
CPT/HCPCS: 36415; 80048; 80307; 82040; 85025; 99284

== ENCOUNTER 2019-03-11 16:47 | Emergency (ER) | payer MEDICAID ==
[~2019-03-11] VITALS: Ht 177.8 cm; Wt 84.0 kg
[~2019-03-11 16:47] MED LIST changes: +QUET25TA5 PO
[2019-03-11 16:50] VITALS: BP 122/74
--- NOTE | 2019-03-11 17:26 | NUR ---
TO ROOM AT THIS TIME
[2019-03-11] MEDS ORDERED: LORazepam 1MG TABLET ONE (17:51)
[2019-03-11] MEDS ORDERED: LORazepam 1MG TABLET PO ONE (18:00)
--- NOTE | 2019-03-11 18:00 | NUR ---
pt in room at this time. pt no medical complaint at this time. pt states "i don't feel safe out there" pt unable to ellaborate on feelings. pt admits to meth use today. pt stated that people keep calling him a pedophile and it makes him angry.
[2019-03-11 18:21] LABS: BASOPHILS # (AUTO) 0.02 x10^3/uL (0-0.1); BASOPHILS % (AUTO) 0 % (0-1); EOSINOPHILS # (AUTO) 0.09 x10^3/uL (0-0.4); EOSINOPHILS % (AUTO) 1 % (1-7); LYMPHOCYTES # (AUTO) 2.19 x10^3/uL (1-3.4); LYMPHOCYTES % (AUTO) 27 % (22-44); MD NO; MEAN CORPUSCULAR HEMOGLOBIN 30.1 pg (27.5-34.5); MEAN CORPUSCULAR HGB CONC 32.6 g/dL (33.2-36.2); MEAN CORPUSCULAR VOLUME 92.3 fL (81-97); MEAN PLATELET VOLUME 8.3 fL (7.4-10.4); MONOCYTES % (AUTO) 5 % (2-9); NEUTROPHILS # (AUTO) 5.28 x10^3/uL (1.8-6.8); NEUTROPHILS % (AUTO) 66 % (42-75); PLATELET COUNT 301 x10^3/uL (130-400); RED BLOOD COUNT 5.29 x10^6/uL (4.38-5.82); RED CELL DISTRIBUTION WIDTH 13.5 % (9.4-14.8)
[2019-03-11 18:23] LABS: ALANINE AMINOTRANSFERASE 47 U/L (12-78); ALBUMIN 3.8 g/dL (3.4-5.0); ANION GAP 5 mmol/L (5-15); CALCIUM 9.4 mg/dL (8.5-10.1); CHLORIDE 105 mmol/L (98-107)
[2019-03-11 18:25] LABS: ALKALINE PHOSPHATASE 123 U/L (45-117); BILIRUBIN,TOTAL 0.8 mg/dL (0.2-1.0); CREATININE 1.19 mg/dL (0.7-1.3)
[2019-03-11 18:26] LABS: SALICYLATE LEVEL < 1.7 mg/dL (2.8-20.0)
[2019-03-11 19:00] LABS: AMPHETAMINE SCREEN, URINE Positive (Negative); BARBITURATE SCREEN, URINE Negative (Negative); BENZODIAZEPINE SCREEN, URINE Negative (Negative); CANNABINOID SCREEN, URINE Positive (Negative); COCAINE SCREEN, URINE Negative (Negative); METHADONE SCREEN, URINE Negative (Negative); OPIATE SCREEN, URINE Negative (Negative)
== END 2019-03-11 19:54 | disposition home or self-care (01) ==
LOC: ED 17:39
DX: F41.1 Generalized anxiety disorder (principal); F20.9 Schizophrenia, unspecified; F31.9 Bipolar disorder, unspecified; F15.20 Other stimulant dependence, uncomplicated; Z72.9 Problem related to lifestyle, unspecified; I10 Essential (primary) hypertension; E11.65 Type 2 diabetes mellitus with hyperglycemia
CPT/HCPCS: 36415; 80053; 80307; 85025; 99284

== ENCOUNTER 2019-04-10 12:41 | Emergency (ER) | payer MEDICAID ==
[~2019-04-10] VITALS: Ht 177.8 cm; Wt 79.4 kg
[2019-04-10 12:47] VITALS: BP 111/74
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
[2019-04-10 13:16] LABS: BASOPHILS # (AUTO) 0.03 x10^3/uL (0-0.1); BASOPHILS % (AUTO) 1 % (0-1); EOSINOPHILS # (AUTO) 0.25 x10^3/uL (0-0.4); EOSINOPHILS % (AUTO) 5 % (1-7); LYMPHOCYTES # (AUTO) 2.81 x10^3/uL (1-3.4); LYMPHOCYTES % (AUTO) 53 % (22-44); MD NO; MEAN CORPUSCULAR HEMOGLOBIN 29.2 pg (27.5-34.5); MEAN CORPUSCULAR HGB CONC 32.8 g/dL (33.2-36.2); MEAN CORPUSCULAR VOLUME 89.1 fL (81-97); MEAN PLATELET VOLUME 8.3 fL (7.4-10.4); MONOCYTES # (AUTO) 0.39 x10^3/uL (0.2-0.8); MONOCYTES % (AUTO) 7 % (2-9); NEUTROPHILS # (AUTO) 1.85 x10^3/uL (1.8-6.8); NEUTROPHILS % (AUTO) 35 % (42-75); PLATELET COUNT 317 x10^3/uL (130-400); RED CELL DISTRIBUTION WIDTH 12.6 % (9.4-14.8)
[2019-04-10 13:25] LABS: ALBUMIN 3.4 g/dL (3.4-5.0); ANION GAP 8 mmol/L (5-15); CALCIUM 9.2 mg/dL (8.5-10.1); CHLORIDE 97 mmol/L (98-107); CREATININE 1.11 mg/dL (0.7-1.3)
--- NOTE | 2019-04-10 13:51 | NUR ---
PT RESTING ON [facility]. UA OBTAINED
--- NOTE | 2019-04-10 14:00 | NUR ---
PT SLEEPING, RESP EVEN AND UNLABORED ROOM SECURED, SITTER AT DOOR.
[2019-04-10 14:03] LABS: AMPHETAMINE SCREEN, URINE Positive (Negative); BARBITURATE SCREEN, URINE Negative (Negative); BENZODIAZEPINE SCREEN, URINE Negative (Negative); CANNABINOID SCREEN, URINE Positive (Negative); COCAINE SCREEN, URINE Negative (Negative); METHADONE SCREEN, URINE Negative (Negative); OPIATE SCREEN, URINE Negative (Negative)
--- NOTE | 2019-04-10 15:00 | NUR ---
PT IS SLEEPING COMFORTABLY
--- NOTE | 2019-04-10 16:11 | NUR ---
PT RESTING COMFORTABLE ON [facility]. NO COMPLAINTS. GIVEN SNACKS AND WATER.
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
== END 2019-04-10 16:55 | disposition home or self-care (01) ==
LOC: ED 13:03
DX: F32.0 Major depressive disorder, single episode, mild (principal); R45.851 Suicidal ideations; E11.65 Type 2 diabetes mellitus with hyperglycemia; F12.10 Cannabis abuse, uncomplicated; F15.10 Other stimulant abuse, uncomplicated; F41.1 Generalized anxiety disorder; F29 Unspecified psychosis not due to a substance or known physiological condition; F20.9 Schizophrenia, unspecified; Z72.9 Problem related to lifestyle, unspecified
CPT/HCPCS: 36415; 80048; 80307; 82040; 85025; 99284